=== PATIENT | female | born 1990 | race Caucasian/White ===

== ENCOUNTER 2017-05-15 11:13 | Emergency (ER) | payer MEDICAID ==
[~2017-05-15] VITALS: Ht 170.2 cm; Wt 91.0 kg
[~2017-05-15 11:13] MED LIST: PROT20 PO; [UNRECOGNIZED DRUG - REMARK]
[2017-05-15] MEDS ORDERED: MORPHINE SULFATE 4 MG/ML CPJ (NOT FOR IM USE) IV STA (14:47)
[2017-05-15] MEDS ORDERED: ONDANSETRON HCL 4MG/2ML VIAL IV STA (14:47)
[2017-05-15] MEDS ORDERED: SODIUM CHLORIDE 0.9% 1,000 ML IV ONE (14:47)
[2017-05-15] MEDS ORDERED: IOHEXOL-300 100 ML BOTTLE ONE (14:54)
[2017-05-15] MEDS ORDERED: SODIUM CHLORIDE 0.9% 10ML VIAL ONE (14:54)
[2017-05-15 15:24] LABS: BASOPHILS % 0.3 % (0.0-2.0); HEMOGLOBIN. 12.5 g/dL (12.0-16.0); LYMPHOCYTES % 8.1 % (20.0-50.0); MEAN CORPUSCULAR HEMOGLOBIN 27.9 pg (28.0-32.0); MEAN CORPUSCULAR VOLUME 84.6 fL (81.0-99.0); MEAN PLATELET VOLUME 7.6 fl (7.4-10.4); MONOCYTES % 6.4 % (2.0-8.0); NEUTROPHILS % 85.2 % (40.0-76.0); PLATELET 234 x1000/uL (130-400); RED BLOOD CELL COUNT 4.49 mill/uL (4.2-5.4); RED CELL DISTRIBUTION WIDTH 14.7 % (11.6-14.6)
[2017-05-15 15:32] LABS: CARBON DIOXIDE 24 mEq/L (21-32); CHLORIDE 102 mEq/L (98-107)
[2017-05-15 15:43] LABS: HCG SCREEN NEGATIVE
[2017-05-15 15:45] LABS: INR 1.1
[2017-05-15 16:13] LABS: CLARITY URINE CLEAR (CLEAR); COLOR URINE YELLOW (YELLOW); GLUCOSE URINE NEGATIVE (NEGATIVE); KETONES URINE NEGATIVE (NEGATIVE); LEUKOCYTE ESTERASE URINE NEGATIVE (NEGATIVE); NITRITE URINE NEGATIVE (NEGATIVE); OCCULT BLOOD URINE NEGATIVE (NEGATIVE); PH URINE 7.5 (4.5-8.0); PROTEIN URINE NEGATIVE (NEGATIVE); SPECIFIC GRAVITY URINE 1.021 (1.005-1.030); UROBILINOGEN URINE 0.2 E.U./dL (0.2-1.0)
[2017-05-15] MEDS ORDERED: SODIUM CHLORIDE 0.9% 1000ML BAG (SEPSIS BOLUS) IV ONE (16:45)
[2017-05-15 22:00] VITALS: BP 102/54
== END 2017-05-15 22:00 | disposition home or self-care (01) ==
LOC: ER 15:30 → CANBEDREQ 18:12 → ER 22:00
DX: R19.7 Diarrhea, unspecified (principal); R50.9 Fever, unspecified; R10.9 Unspecified abdominal pain
CPT/HCPCS: 36415; 71010; 74177; 80053; 81003; 83605; 83690; 84145; 84703; 85025; 85610; 87040; 87077; 87086; 96361; 96374; 96375; 99285; A4216; J2270; J2405; Q9967; J7030

== ENCOUNTER 2018-11-07 08:07 | Emergency (ER) | payer SELFPAY ==
[~2018-11-07] VITALS: Ht 160 cm; Wt 82.0 kg
[2018-11-07] MEDS ORDERED: ONDANSETRON HCL 4MG/2ML INJ IV STA (09:31)
[2018-11-07 09:42] LABS: CLARITY URINE CLOUDY (CLEAR); COLOR URINE ORANGE (YELLOW); KETONES URINE NEGATIVE (NEGATIVE); LEUKOCYTE ESTERASE URINE 1+ (NEGATIVE); NITRITE URINE NEGATIVE (NEGATIVE); OCCULT BLOOD URINE 3+ (NEGATIVE); PH URINE 7.5 (4.5-8.0); PROTEIN URINE NEGATIVE (NEGATIVE); SPECIFIC GRAVITY URINE 1.021 (1.005-1.030); UROBILINOGEN URINE 0.2 E.U./dL (0.2-1.0)
[2018-11-07 12:33] VITALS: BP 128/76
== END 2018-11-07 12:35 | disposition home or self-care (01) ==
LOC: ER 08:07
DX: L03.211 Cellulitis of face (principal); L03.113 Cellulitis of right upper limb; N39.0 Urinary tract infection, site not specified
CPT/HCPCS: 81025; 99283

== ENCOUNTER 2019-04-22 08:51 | Emergency (ER) | payer SELFPAY ==
[~2019-04-22] VITALS: Ht 167.6 cm; Wt 78.0 kg
[2019-04-22 10:01] LABS: CLARITY URINE CLOUDY (CLEAR); COLOR URINE YELLOW (YELLOW); KETONES URINE NEGATIVE (NEGATIVE); LEUKOCYTE ESTERASE URINE 3+ (NEGATIVE); NITRITE URINE NEGATIVE (NEGATIVE); OCCULT BLOOD URINE TRACE (NEGATIVE); PH URINE 7.5 (4.5-8.0); PROTEIN URINE NEGATIVE (NEGATIVE); SPECIFIC GRAVITY URINE 1.015 (1.005-1.030); UROBILINOGEN URINE 0.2 E.U./dL (0.2-1.0)
[2019-04-22 10:02] LABS: BASOPHILS % 0.3 % (0.0-2.0); EOSINOPHILS % 1.8 % (0.0-5.0); HEMATOCRIT. 36.8 % (36.0-48.0); HEMOGLOBIN. 12.5 g/dL (12.0-16.0); LYMPHOCYTES % 26.8 % (20.0-50.0); MEAN CORPUSCULAR HEMOGLOBIN 29.2 pg (28.0-32.0); MEAN CORPUSCULAR VOLUME 85.8 fL (81.0-99.0); MEAN PLATELET VOLUME 7.6 fl (7.4-10.4); MONOCYTES % 6.3 % (2.0-8.0); NEUTROPHILS % 64.8 % (40.0-76.0); PLATELET 261 x1000/uL (130-400); RED CELL DISTRIBUTION WIDTH 14.1 % (11.6-14.6)
[2019-04-22 10:06] LABS: CHLORIDE 106 mEq/L (98-107); PROTHROMBIN TIME 9.8 sec (9.6-11.0)
[2019-04-22 10:11] LABS: HCG SCREEN NEGATIVE
[2019-04-22] MEDS ORDERED: KETOROLAC 30MG/ML VIAL IV ONE (11:00)
[2019-04-22 11:46] VITALS: BP 106/65
== END 2019-04-22 11:53 | disposition home or self-care (01) ==
LOC: ER 11:52
DX: N39.0 Urinary tract infection, site not specified (principal); R10.13 Epigastric pain; R19.7 Diarrhea, unspecified; L25.9 Unspecified contact dermatitis, unspecified cause
CPT/HCPCS: 36415; 80053; 81003; 83690; 84703; 85025; 85610; 87086; 96374; 99283; J1885

== ENCOUNTER 2021-12-01 13:18 | Emergency (ER) | payer MEDICAID ==
[~2021-12-01] VITALS: Ht 167.6 cm; Wt 77.0 kg
[2021-12-01 14:22] LABS: CLARITY URINE CLOUDY (CLEAR); COLOR URINE YELLOW (YELLOW); KETONES URINE TRACE (NEGATIVE); LEUKOCYTE ESTERASE URINE 2+ (NEGATIVE); NITRITE URINE NEGATIVE (NEGATIVE); OCCULT BLOOD URINE TRACE (NEGATIVE); PH URINE 5.5 (4.5-8.0); PROTEIN URINE TRACE (NEGATIVE); SPECIFIC GRAVITY URINE 1.034 (1.005-1.030)
[2021-12-01 16:22] LABS: BASOPHILS % 0.4 % (0.0-2.0); EOSINOPHILS % 2.9 % (0.0-5.0); HEMATOCRIT. 36.6 % (36.0-48.0); HEMOGLOBIN. 12.1 g/dL (12.0-16.0); LYMPHOCYTES % 24.9 % (20.0-50.0); MEAN CORPUSCULAR VOLUME 84.5 fL (81.0-99.0); MEAN PLATELET VOLUME 7.3 fl (7.4-10.4); MONOCYTES % 9.2 % (2.0-8.0); NEUTROPHILS % 62.6 % (40.0-76.0); PLATELET 283 x1000/uL (130-400); RED BLOOD CELL COUNT 4.33 mill/uL (4.2-5.4); RED CELL DISTRIBUTION WIDTH 14.8 % (11.6-14.6)
[2021-12-01 16:27] LABS: CHLORIDE 108 mEq/L (98-107)
[2021-12-01 18:10] VITALS: BP 127/86
[2021-12-01] MEDS ORDERED: ACETAMINOPHEN 325MG TABLET PO ONE (18:45)
[2021-12-01] MEDS ORDERED: ONDANSETRON HCL 4MG TABLET PO NR (18:45)
[2021-12-01] MEDS ORDERED: ONDANSETRON HCL 4MG TABLET PO ONE (18:45)
[2021-12-01] MEDS ORDERED: NITR100C PO (19:16)
[2021-12-01] MEDS ORDERED: ONDA4TAB5 PO (19:16)
== END 2021-12-01 19:24 | disposition home or self-care (01) ==
LOC: ER 15:45
DX: N39.0 Urinary tract infection, site not specified (principal); R11.2 Nausea with vomiting, unspecified
CPT/HCPCS: 36415; 80053; 81003; 81025; 83690; 85025; 87086; 93005; 99284; Q0162

== ENCOUNTER 2022-06-14 11:45 | Emergency (ER) | payer MEDICAID ==
[~2022-06-14] VITALS: Ht 167.6 cm; Wt 65.0 kg
[~2022-06-14 11:45] MED LIST changes: +NITR100C PO; +ONDA4TAB5 PO
[2022-06-14 11:53] VITALS: BP 133/80
[2022-06-14] MEDS ORDERED: NAPR-1176 MT (15:01)
== END 2022-06-14 15:21 | disposition home or self-care (01) ==
LOC: ER 11:45
DX: M79.10 Myalgia, unspecified site (principal)
CPT/HCPCS: 99281

== ENCOUNTER 2023-01-05 09:18 | Emergency (ER) | payer BC, MEDICAID ==
[~2023-01-05] VITALS: Ht 167.6 cm; Wt 81.0 kg
[~2023-01-05 09:18] MED LIST changes: +NAPR-1176 MT
[2023-01-05 09:24] VITALS: BP 129/72
[2023-01-05 09:53] LABS: CLARITY URINE CLOUDY (CLEAR); COLOR URINE YELLOW (YELLOW); KETONES URINE NEGATIVE (NEGATIVE); LEUKOCYTE ESTERASE URINE 3+ (NEGATIVE); NITRITE URINE NEGATIVE (NEGATIVE); OCCULT BLOOD URINE 3+ (NEGATIVE); PH URINE 6.5 (4.5-8.0); PROTEIN URINE 1+ (NEGATIVE); SPECIFIC GRAVITY URINE 1.021 (1.005-1.030); UROBILINOGEN URINE 0.2 E.U./dL (0.2-1.0)
[2023-01-05] MEDS ORDERED: PHEN-815 MT (10:19)
[2023-01-05] MEDS ORDERED: NITR100C PO (10:19)
== END 2023-01-05 10:26 | disposition home or self-care (01) ==
LOC: ER 09:47
DX: N30.01 Acute cystitis with hematuria (principal)
CPT/HCPCS: 81003; 81025; 87077; 87186; 99283